=== PATIENT | male | born 1980 | race Caucasian/White ===

== ENCOUNTER 2022-04-10 17:28 | Emergency (ER) | payer BC ==
[~2022-04-10 17:28] MED LIST: LEVAQUIN500 MG PO
[2022-04-10] MEDS ORDERED: IPRAT-ALBUT 0.5-3 ML INH (18:22)
[2022-04-10] MEDS ORDERED: PREDNISONE 50 M50 MG PO (18:22)
[2022-04-10] MEDS ORDERED: CODEINE SULFATE30 M1 PO (18:22)
== END 2022-04-10 18:34 | disposition home or self-care (01) ==
LOC: ER1 17:28
DX: J44.9 Chronic obstructive pulmonary disease, unspecified (principal); J20.9 Acute bronchitis, unspecified; F17.200 Nicotine dependence, unspecified, uncomplicated
CPT/HCPCS: 71045; 93005; 94664; 94760; 99285